=== PATIENT | male | born 1970 | race Two or more races ===

== ENCOUNTER 2020-01-04 15:00 | Outpatient (CLI) | payer OTHER, SELFPAY ==
[2020-01-04 16:22] LABS: Alanine Aminotransferase 51 U/L (4-50); Albumin Level 4.4 g/dL (3.5-5.1); Alkaline Phosphatase 57 U/L (38-126); Aspartate Amino Transferase 47 U/L (17-59); Bilirubin,Total 0.6 mg/dL (0.2-1.3); Blood Urea Nitrogen 18 mg/dL (9-20); Calcium 9.7 mg/dL (8.4-10.2); Carbon Dioxide 27 mmol/L (22-30); Chloride 106 mmol/L (98-107); Cholesterol 153 mg/dL (0-200); Estimated Glomerular Filt Rate > 60; Glucose 113 mg/dL (75-110); HDL Direct 31 mg/dL; Potassium 3.7 mmol/L (3.4-5.0); Sodium 141 mmol/L (137-145); Triglycerides 140 mg/dL (<150)
[2020-01-04 16:33] LABS: LDL Cholesterol Direct 99 mg/dL
== END 2020-01-04 15:01 | disposition home or self-care (01) ==
PROVIDERS: PCP Nurse Practitioner Family; Visit Provider Nurse Practitioner Family
DX: I10 Essential (primary) hypertension (principal)
CPT/HCPCS: 36415; 80053; 80061

== ENCOUNTER 2020-01-19 13:34 | Outpatient (CLI) | payer OTHER, SELFPAY | END 2020-01-19 13:35 | disposition home or self-care (01) | PROVIDERS: PCP Family Medicine; Visit Provider Nurse Practitioner Family | DX: R73.09 Other abnormal glucose (principal) | CPT/HCPCS: 36415; 83036 ==

== ENCOUNTER 2020-06-10 10:30 | Outpatient (CLI) | payer OTHER, SELFPAY ==
[2020-06-10 10:56] LABS: Basophils Absolute Auto 0.1 K/mm3 (0.0-0.1); Eosinophils Absolute Auto 0.3 K/mm3 (0-0.3); Eosinophils Percent Auto 2.8 % (0-4.4); Hematocrit 44.7 % (42.0-52.0); Hemoglobin 15.2 g/dL (14.0-18.0); Immature Granulocyte Absolute 0.02 K/mm3 (0.00-0.031); Immature Granulocyte Percent A 0.2 % (0-0.5); Lymphocytes Absolute Auto 3.91 K/mm3 (0.9-3.2); Lymphocytes Percent Auto 42.6 % (18.3-44.2); Mean Platelet Volume 9.8 fl (7.4-10.4); Monocytes Absolute Auto 0.6 K/mm3 (0.1-0.6); Neutrophils Absolute Auto 4.4 K/mm3 (1.3-6.7); Neutrophils Percent Auto 47.4 % (45.5-73.1); Platelet Count Result 286 k/mm3 (150-375); Red Blood Count 4.61 M/mm3 (4.6-6.20); Red Cell Distribution Width 11.8 % (11.5-14.5); White Blood Count 9.2 K/mm3 (4.5-10.0)
[2020-06-10 11:07] LABS: Alanine Aminotransferase 26 U/L (4-50); Albumin Level 4.4 g/dL (3.5-5.1); Alkaline Phosphatase 59 U/L (38-126); Anion Gap 11 mmol/L (8-16); Aspartate Amino Transferase 23 U/L (17-59); Bilirubin,Total 0.9 mg/dL (0.2-1.3); Blood Urea Nitrogen 15 mg/dL (9-20); Calcium 9.9 mg/dL (8.4-10.2); Carbon Dioxide 24 mmol/L (22-30); Chloride 107 mmol/L (98-107); Cholesterol 158 mg/dL (0-200); Estimated Glomerular Filt Rate > 60; Glucose 106 mg/dL (75-110); HDL Direct 41 mg/dL; Potassium 4.7 mmol/L (3.4-5.0); Sodium 142 mmol/L (137-145); Triglycerides 89 mg/dL (<150)
[2020-06-10 11:09] LABS: Hemoglobin A1C 4.5 % (<5.7)
[2020-06-10 11:18] LABS: LDL Cholesterol Direct 103 mg/dL
== END 2020-06-10 10:31 | disposition home or self-care (01) ==
PROVIDERS: PCP Family Medicine; Visit Provider Nurse Practitioner
DX: I10 Essential (primary) hypertension (principal); R73.9 Hyperglycemia, unspecified; E78.5 Hyperlipidemia, unspecified
CPT/HCPCS: 36415; 80053; 80061; 83036; 85025

== ENCOUNTER 2020-12-09 10:06 | Outpatient (CLI) | payer OTHER, SELFPAY ==
[2020-12-09 10:29] LABS: Basophils Absolute Auto 0.1 K/mm3 (0.0-0.1); Basophils Percent Auto 1.1 % (0.2-1.2); Eosinophils Absolute Auto 0.4 K/mm3 (0-0.3); Eosinophils Percent Auto 4.6 % (0-4.4); Hematocrit 44.6 % (42.0-52.0); Hemoglobin 15.2 g/dL (14.0-18.0); Immature Granulocyte Absolute 0.02 K/mm3 (0.00-0.031); Immature Granulocyte Percent A 0.2 % (0-0.5); Lymphocytes Percent Auto 42.2 % (18.3-44.2); Mean Corpuscular HGB Conc 34.1 g/dl (32-36); Mean Corpuscular Hemoglobin 33.1 pg (26-34); Mean Corpuscular Volume 97.2 fl (80-100); Mean Platelet Volume 9.6 fl (7.4-10.4); Monocytes Absolute Auto 0.6 K/mm3 (0.1-0.6); Monocytes Percent Auto 6.6 % (2.6-8.5); Neutrophils Absolute Auto 3.9 K/mm3 (1.3-6.7); Neutrophils Percent Auto 45.3 % (45.5-73.1); Platelet Count Result 262 k/mm3 (150-375); Red Blood Count 4.59 M/mm3 (4.6-6.20); Red Cell Distribution Width 11.7 % (11.5-14.5); White Blood Count 8.5 K/mm3 (4.5-10.0)
[2020-12-09 10:40] LABS: Alanine Aminotransferase 34 U/L (4-50); Albumin Level 4.4 g/dL (3.5-5.1); Alkaline Phosphatase 51 U/L (38-126); Anion Gap 9 mmol/L (8-16); Aspartate Amino Transferase 26 U/L (17-59); Bilirubin,Total 0.5 mg/dL (0.2-1.3); Blood Urea Nitrogen 14 mg/dL (9-20); Calcium 9.5 mg/dL (8.4-10.2); Carbon Dioxide 25 mmol/L (22-30); Chloride 108 mmol/L (98-107); Cholesterol 163 mg/dL (0-200); Estimated Glomerular Filt Rate > 60; Glucose 132 mg/dL (75-110); HDL Direct 41 mg/dL; Potassium 4.3 mmol/L (3.4-5.0); Sodium 142 mmol/L (137-145); Triglycerides 130 mg/dL (<150)
[2020-12-09 10:51] LABS: LDL Cholesterol Direct 94 mg/dL
[2020-12-09 11:33] LABS: Vitamin D 25 Hydroxy 25.5 ng/mL
[2020-12-10 13:55] LABS: Hemoglobin A1C 4.8 % (<5.7)
== END 2020-12-09 10:07 | disposition home or self-care (01) ==
LOC: ANHLAB 10:09
PROVIDERS: PCP Family Medicine; Visit Provider Nurse Practitioner
DX: I10 Essential (primary) hypertension (principal); E78.5 Hyperlipidemia, unspecified; E55.9 Vitamin D deficiency, unspecified
CPT/HCPCS: 36415; 80053; 80061; 82306; 83036; 85025

== ENCOUNTER 2021-06-09 10:04 | Outpatient (CLI) | payer OTHER, SELFPAY ==
[2021-06-09 10:29] LABS: Basophils Absolute Auto 0.1 K/mm3 (0.0-0.1); Basophils Percent Auto 0.8 % (0.2-1.2); Eosinophils Absolute Auto 0.3 K/mm3 (0-0.3); Hematocrit 47.4 % (42.0-52.0); Hemoglobin 15.3 g/dL (14.0-18.0); Immature Granulocyte Absolute 0.03 K/mm3 (0.00-0.031); Immature Granulocyte Percent A 0.3 % (0-0.5); Immature Platelet Fraction Pct 2.9 % (0.9-11.2); Lymphocytes Absolute Auto 3.19 K/mm3 (0.9-3.2); Lymphocytes Percent Auto 36.8 % (18.3-44.2); Mean Corpuscular HGB Conc 32.3 g/dl (32-36); Mean Corpuscular Volume 102.4 fl (80-100); Mean Platelet Volume 9.5 fl (7.4-10.4); Monocytes Absolute Auto 0.4 K/mm3 (0.1-0.6); Monocytes Percent Auto 5.1 % (2.6-8.5); Neutrophils Absolute Auto 4.7 K/mm3 (1.3-6.7); Red Blood Count 4.63 M/mm3 (4.6-6.20); White Blood Count 8.7 K/mm3 (4.5-10.0)
[2021-06-09 10:47] LABS: Alanine Aminotransferase 43 U/L (4-50); Albumin Level 4.7 g/dL (3.5-5.1); Alkaline Phosphatase 72 U/L (38-126); Anion Gap 9 mmol/L (8-16); Aspartate Amino Transferase 34 U/L (17-59); Bilirubin,Total 0.6 mg/dL (0.2-1.3); Blood Urea Nitrogen 15 mg/dL (9-20); Calcium 9.8 mg/dL (8.4-10.2); Carbon Dioxide 23 mmol/L (22-30); Chloride 108 mmol/L (98-107); Cholesterol 181 mg/dL (0-200); Estimated Glomerular Filt Rate > 60; Glucose 109 mg/dL (65-110); HDL Direct 36 mg/dL; Potassium 4.3 mmol/L (3.4-5.0); Sodium 140 mmol/L (137-145); Triglycerides 76 mg/dL (<150)
[2021-06-09 10:55] LABS: LDL Cholesterol Direct 124 mg/dL
[2021-06-09 11:14] LABS: Platelet Count Result 312 k/mm3 (150-375)
[2021-06-09 11:15] LABS: Prostate Specific Antigen 7.7 ng/mL (< OR = 4.0)
== END 2021-06-09 10:05 | disposition home or self-care (01) ==
PROVIDERS: PCP Family Medicine; Visit Provider Nurse Practitioner
DX: I10 Essential (primary) hypertension (principal); Z12.5 Encounter for screening for malignant neoplasm of prostate
CPT/HCPCS: 36415; 80053; 80061; 84153; 85025; 85055; G0103

== ENCOUNTER 2021-08-04 01:13 | Day surgery (SDC) | payer OTHER, SELFPAY ==
[2021-07-17 13:45] VITALS: BMI 31.4
[2021-08-04 10:55] VITALS: BP 138/87; PULSE 57; RESP 18; TEMP 36.2; O2SAT 100; BMI 30.4
--- NOTE | 2021-08-04 10:55 | P.CONGI_ITS ---
Assessment and Plan Assessment and plan (1) Encounter for screening colonoscopy: Code(s): Z12.11 - Encounter for screening for malignant neoplasm of colon Status: Acute Assessment and Plan: Patient presents for screening colonoscopy. He appears to be at average risk for colon polyps. Further recommendations will be given after endoscopy. GI Consult Note Consult date/time: 08/04/21 10:55 HPI: Jevon Gaston is a 51 year old male Presents for screening colonoscopy. Patient reports his current weight appetite and bowel movements are normal. He denies abdominal pain. He has had no bleeding. Family history is significant his grandmother had colon cancer. There has been no reported history of polyps nor cancer in first-degree relatives. Patient presents today for neoplasia screening. Review of Systems Review of Systems: All systems reviewed & are unremarkable except as noted in HPI and below PMFSH Past Medical History Medical History Erectile dysfunction Essential (primary) hypertension Gout ARVIND on CPAP Osteoarthritis of left wrist Seasonal allergies Surgical History Surgical History No history of previous surgery Family History Family History Mother Hypertension, Onset Age: 70 Social History Social History Smoking status: Current some day smoker Alcohol intake: never Living arrangements: with family Spiritual care concerns: No Meds Home Medications and Allergies Home Medications Medication Instructions Recorded Confirmed Type fluticasone propionate 50 See Rx Instructions .ROUTE 12/18/20 08/04/21 Rx mcg/actuation nasal .COMPLEX #16 milliliter spray,suspension sildenafil 50 mg tablet 50 mg PO DAILY PRN #30 tablet 01/13/21 08/04/21 Rx atenolol 50 mg tablet 50 mg PO DAILY #90 tablet 05/16/21 08/04/21 Rx amlodipine 10 mg tablet 10 mg PO DAILY #90 tablet 06/25/21 08/04/21 Rx meloxicam 7.5 mg tablet 7.5 mg PO DAILY #90 tablet 06/25/21 08/04/21 Rx allopurinol 100 mg PO DAILY 07/17/21 08/04/21 History multivit with min-folic acid 1 tablet PO DAILY 07/17/21 08/04/21 History [Adult One Daily Multivitamin] Allergies Allergy/AdvReac Type Severity Reaction Status Date / Time No Known Allergies Allergy Verified 08/04/21 10:54 Exam Narrative: Physical exam reveals patient be alert. Vital signs are stable. HEENT exam is unremarkable. Patient is anicteric. Lungs are clear to aus cultation and percussion. Heart is without murmur or extra sounds. Abdominal exam bowel sounds are present soft nontender with no organomegaly. Digital external rectal exam is normal.
[2021-08-04] MEDS: LACTATED RINGERS 1,000 ML 150 ML IV CONT (11:08)
--- NOTE | 2021-08-04 11:28 | WPDANESEPPF ---
Anes - Initial Pre Proc Eval Procedure: Operation Date: 08/04/21 11:30 Proposed Procedures p Screening Colonoscopy - Brice Iglesias MD Date/Time: 08/04/21 11:28 Surgeon: Brice Iglesias MD Pre Op Diagnosis: neoplasm screening Patient Data Age: 51 Gender: M Height: 1.83 m Weight: 101.9 kg Last Vital Signs Temp 97.2 F L 08/04/21 10:55 Pulse 57 L 08/04/21 10:55 Resp 18 08/04/21 10:55 BP 138/87 08/04/21 10:55 Pulse Ox 100 08/04/21 10:55 Allergies Allergy/AdvReac Type Severity Reaction Status Date / Time No Known Allergies Allergy Verified 08/04/21 10:54 Home Medications Medication Instructions Recorded Confirmed Type fluticasone propionate 50 See Rx Instructions .ROUTE 12/18/20 08/04/21 Rx mcg/actuation nasal .COMPLEX #16 milliliter spray,suspension sildenafil 50 mg tablet 50 mg PO DAILY PRN #30 tablet 01/13/21 08/04/21 Rx atenolol 50 mg tablet 50 mg PO DAILY #90 tablet 05/16/21 08/04/21 Rx amlodipine 10 mg tablet 10 mg PO DAILY #90 tablet 06/25/21 08/04/21 Rx meloxicam 7.5 mg tablet 7.5 mg PO DAILY #90 tablet 06/25/21 08/04/21 Rx allopurinol 100 mg PO DAILY 07/17/21 08/04/21 History multivit with min-folic acid 1 tablet PO DAILY 07/17/21 08/04/21 History [Adult One Daily Multivitamin] Patient hx anesthesia problems: none Family hx anesthesia problems: none Results Review: All pre-operative results and documents have been reviewed as part of the pre-operative evaluation. FOR[facility]LY [facility] Past Medical History Medical History Erectile dysfunction Essential (primary) hypertension Gout ARVIND on CPAP Osteoarthritis of left wrist Seasonal allergies Surgical History Surgical History No history of previous surgery Family History Family History Mother Hypertension, Onset Age: 70 Social History Social History Smoking status: Current some day smoker Alcohol intake: never Living arrangements: with family Spiritual care concerns: No Anes - Eval Final PreProcedure Day of Procedure 08/04/21 11:28 Patient weight: overweight Heart: regular rate and rhythm Lungs: clear to auscultation Airway: Mallampati scale class II Neurological: alert and oriented Last oral intake: >/= 8 hours ASA classification: II Emergent: no Anesthetic plan: proceed Anesthesia type and monitoring: general GIVS and standard monitoring Results Review: All pre-operative results and documents have been reviewed as part of the pre-operative evaluation. Informed Consent: The patient's anesthetic plan and its attendant risks and benefits were discussed with the patient/family/POA. Questions were solicited and answers provided to the satisfaction of the patient/family/POA.
[2021-08-04 12:41] VITALS: BP 83/51; PULSE 67; RESP 17; O2SAT 99
[2021-08-04 12:51] VITALS: BP 104/74; PULSE 63; RESP 17; O2SAT 100
[2021-08-04 13:01] VITALS: BP 119/80; PULSE 52; RESP 17; O2SAT 100
== END 2021-08-04 13:15 | disposition home or self-care (01) ==
PROVIDERS: PCP Family Medicine; Visit Provider Internal Medicine Gastroenterology
PROC: 0DJD8ZZ Inspection of Lower Intestinal Tract, Via Natural or Artificial Opening Endoscopic (ICD-10-PCS; CPT 45378; principal; 2021-08-04 11:30)
DX: Z12.11 Encounter for screening for malignant neoplasm of colon (principal); K63.5 Polyp of colon; I10 Essential (primary) hypertension; G47.33 Obstructive sleep apnea (adult) (pediatric); M10.9 Gout, unspecified
CPT/HCPCS: 45385; 88305; J2704; J7120

== ENCOUNTER 2022-06-30 15:50 | Outpatient (CLI) | payer OTHER, SELFPAY ==
[2022-06-30 19:37] LABS: Basophils Absolute Auto 0.1 K/mm3 (0.0-0.1); Basophils Percent Auto 0.9 % (0.2-1.2); Eosinophils Absolute Auto 0.4 K/mm3 (0-0.3); Eosinophils Percent Auto 3.9 % (0-4.4); Hematocrit 43.9 % (42.0-52.0); Hemoglobin 14.5 g/dL (14.0-18.0); Immature Granulocyte Absolute 0.02 K/mm3 (0.00-0.031); Immature Granulocyte Percent A 0.2 % (0-0.5); Lymphocytes Absolute Auto 4.82 K/mm3 (0.9-3.2); Lymphocytes Percent Auto 48.2 % (18.3-44.2); Mean Corpuscular Hemoglobin 32.8 pg (26-34); Mean Corpuscular Volume 99.3 fl (80-100); Monocytes Absolute Auto 0.7 K/mm3 (0.1-0.6); Monocytes Percent Auto 7.4 % (2.6-8.5); Neutrophils Absolute Auto 3.9 K/mm3 (1.3-6.7); Neutrophils Percent Auto 39.4 % (45.5-73.1); Platelet Count Result 276 k/mm3 (150-375); Red Blood Count 4.42 M/mm3 (4.6-6.20); Red Cell Distribution Width 11.9 % (11.5-14.5)
[2022-06-30 20:10] LABS: Vitamin D 25 Hydroxy 42.2 ng/mL
[2022-06-30 20:27] LABS: Alanine Aminotransferase 43 U/L (6-50); Albumin Level 4.7 g/dL (3.5-5.1); Alkaline Phosphatase 62 U/L (38-126); Anion Gap 14 mmol/L (8-16); Aspartate Amino Transferase 36 U/L (17-59); Bilirubin,Total 0.6 mg/dL (0.2-1.3); Blood Urea Nitrogen 18 mg/dL (9-20); Calcium 9.2 mg/dL (8.4-10.2); Carbon Dioxide 22 mmol/L (22-30); Chloride 105 mmol/L (98-107); Cholesterol 179 mg/dL (0-200); Estimated Glomerular Filt Rate > 60; Glucose 82 mg/dL (65-110); HDL Direct 36 mg/dL; Potassium 3.7 mmol/L (3.4-5.0); Sodium 141 mmol/L (137-145); Triglycerides 95 mg/dL (<150)
[2022-06-30 20:38] LABS: LDL Cholesterol Direct 111 mg/dL
[2022-06-30 20:57] LABS: Thyroid Stimulating Hormone 0.973 uIU/mL (0.465-4.680)
== END 2022-06-30 15:51 | disposition home or self-care (01) ==
LOC: ANHGOSHLAB 15:51
PROVIDERS: PCP Family Medicine; Visit Provider Nurse Practitioner Family
DX: Z00.00 Encounter for general adult medical examination without abnormal findings (principal); I10 Essential (primary) hypertension; E55.9 Vitamin D deficiency, unspecified
CPT/HCPCS: 36415; 80053; 80061; 82306; 84443; 85025

== ENCOUNTER → 2022-12-30 14:45 | Outpatient (CLI) | payer BC, SELFPAY ==
--- NOTE | ~2022-12-30 | XR_ITS ---
EXAM: XR lumbar spine min 4V DATE: 12/30/2022 14:57 HISTORY: no injury lbp . COMPARISON: None available. FINDINGS: 5 nonrib-bearing lumbar-type vertebral bodies. Pedicles intact. Normal vertebral body alig nment. Vertebral body heights preserved. Mild anterior wedge deformity at the thoracolumbar junction, presumably physiologic. Mild disc space narrowing at L4-5. Moderate disc space narrowing with vacuum phenomenon at L5-S1. Mild facet sclerosis at L5-S1. No pars defect. IMPRESSION: Severe degenerative disc disease at L5-S1. Mild L5-S1 facet arthropathy. Reviewed, dictated and finalized at location K. IMPRESSION: Severe degenerative disc disease at L5-S1. Mild L5-S1 facet arthrop athy.
== END ==
PROVIDERS: PCP Family Medicine; Visit Provider Nurse Practitioner
DX: M51.37 Other intervertebral disc degeneration, lumbosacral region (principal)
CPT/HCPCS: 72110

== ENCOUNTER 2023-02-11 15:46 | Outpatient (CLI) | payer BC, SELFPAY ==
[2023-02-11 17:05] LABS: Alanine Aminotransferase 66 U/L (6-50); Albumin Level 4.5 g/dL (3.5-5.1); Alkaline Phosphatase 51 U/L (38-126); Anion Gap 7 mmol/L (8-16); Aspartate Amino Transferase 47 U/L (17-59); Bilirubin,Total 0.7 mg/dL (0.2-1.3); Blood Urea Nitrogen 13 mg/dL (9-20); Calcium 9.1 mg/dL (8.4-10.2); Carbon Dioxide 27 mmol/L (22-30); Chloride 105 mmol/L (98-107); Cholesterol 176 mg/dL (0-200); Estimated Glomerular Filt Rate > 60; Glucose 78 mg/dL (65-110); HDL Direct 41 mg/dL; Potassium 3.8 mmol/L (3.4-5.0); Sodium 139 mmol/L (137-145); Triglycerides 100 mg/dL (<150)
[2023-02-11 17:16] LABS: LDL Cholesterol Direct 113 mg/dL
== END 2023-02-11 15:47 | disposition home or self-care (01) ==
PROVIDERS: PCP Family Medicine; Visit Provider Nurse Practitioner Family
DX: E78.5 Hyperlipidemia, unspecified (principal); I10 Essential (primary) hypertension; R97.20 Elevated prostate specific antigen [PSA]
CPT/HCPCS: 36415; 80053; 80061

== ENCOUNTER 2023-02-24 17:24 | Emergency (ER) | payer BC, SELFPAY ==
--- NOTE | 2023-02-24 17:30 | ED.URI ---
HPI - URI/Sore Throat General Chief Complaint: Upper Respiratory Infection Stated Complaint: Sore Throat Time Seen by Provider: 02/24/23 17:30 Source: patient and RN notes reviewed History of Present Illness HPI Narrative: Patient is a 52-year-old male who presents to urgent care with complaints of a sore throat for 5 weeks. Patient states he initially had a cough, some drainage and a fever which have all improved. Patient is not taking anything recently for his symptoms. States that he is a Lamb any feels like he continues to irritate the throat. No other acute complaints. No acute distress noted. Patient aware of the plan of care. Some parts of this dictation were generated by voice recognition software and may contain typographical and/or grammatical inaccuracies. Related Data Home Medications Medication Instructions Recorded Confirmed multivitamin with minerals-folic 1 tablet PO DAILY 07/17/21 01/21/23 acid 0.4 mg tablet fluticasone propionate 50 See Rx Instructions .Route 01/02/22 01/21/23 mcg/actuation nasal .COMPLEX PRN spray,suspension Allergies Allergy/AdvReac Type Severity Reaction Status Date / Time No Known Allergies Allergy Verified 01/21/23 15:32 Review of Systems Review of Systems: CONSTITUTIONAL: Denies fever, chills, or sweats. EYES: Denies visual changes, redness, or discharge. ENT: Denies rhinorrhea, congestion, otalgia. Reports of sore throat CARDIOVASCULAR: Denies chest pain, palpitations, or edema. RESPIRATORY: Denies cough or dyspnea. GASTROINTESTINAL: Denies abdominal pain, nausea, vomiting, or diarrhea. GENITOURINARY: Denies dysuria or hematuria. SKIN: Denies rash or itching. MUSCULOSKELETAL: Denies back pain, joint pain, or myalgia. NEUROLOGIC: Denies headache, numbness, or weakness. All other systems reviewed are negative, except as documented in HPI. FOR[facility]LY [facility] Past Medical History Medical History DDD (degenerative disc disease), lumbar Erectile dysfunction Essential (primary) hypertension Gout ARVIND on CPAP Osteoarthritis of left wrist Seasonal allergies Surgical History Surgical History No history of previous surgery Family History Family History Mother Hypertension, Onset Age: 70 Social History Social History Smoking status: Current some day smoker Tobacco type: cigarettes Alcohol intake: never Substance use: never Substance use type: does not use Lack of Transportation: No Lack of Food: Never True Current Housing: I Have Housing Concerned About Future Housing: No Difficulty Paying Gas/Electric Bills: No Difficulty Paying for Meds: No Currently Unemployed: No Education: Associate Degree Difficulty w/ Childcare or Family Care: No Living arrangements: alone Occupation/Education: occupation Gender identity (if verbalized by the patient): Male Spiritual care concerns: No Comments At the time of my signature, I reviewed and agree with the nursing past medical, surgical, social, and family history. There is no relevant family history pertinent to the patient complaint. Exam Narrative: GENERAL: This is a well-nourished, well-developed patient, in no apparent distress. HEAD: normocephalic, atraumatic. EYES: PERRL. Sclera clear/white. Vision is grossly intact. EARS: External ears normal, auditory canals clear and without drainage, TMs normal without perforation. Hearing grossly intact. NOSE: External nose normal with no obvious nasal discharge, nares without redness, no rhinorrhea. THROAT: Mucous membranes moist; mild erythema in the posterior oropharynx NECK: Neck supple, non-tender without lymphadenopathy, masses or thyromegaly. CARDIOVASCULAR: Regular rate and rhythm without murmurs, gallops, or rubs. RESPIRA
[2023-02-24 17:34] VITALS: BP 161/85; PULSE 73; RESP 20; TEMP 37.1; O2SAT 100
== END 2023-02-24 18:08 | disposition home or self-care (01) ==
PROVIDERS: Emergency Provider Nurse Practitioner Family; PCP Family Medicine
DX: J02.9 Acute pharyngitis, unspecified (principal); F17.219 Nicotine dependence, cigarettes, with unspecified nicotine-induced disorders; M51.36 Other intervertebral disc degeneration, lumbar region; I10 Essential (primary) hypertension; M10.9 Gout, unspecified; G47.33 Obstructive sleep apnea (adult) (pediatric); M19.032 Primary osteoarthritis, left wrist
CPT/HCPCS: 87081; 87880; 99213; G0463

== ENCOUNTER 2023-03-15 14:26 | Outpatient (CLI) | payer BC, SELFPAY ==
[2023-03-15 15:39] LABS: Kit Draw Collected
== END 2023-03-15 14:27 | disposition home or self-care (01) ==
LOC: ANHGOSHLAB 14:27
PROVIDERS: PCP Family Medicine; Visit Provider Otolaryngology
DX: E03.9 Hypothyroidism, unspecified (principal)
CPT/HCPCS: 36415

== ENCOUNTER 2023-08-12 08:58 | Outpatient (CLI) | payer BC, SELFPAY ==
[2023-08-12 12:02] LABS: Basophils Absolute Auto 0.1 K/mm3 (0.0-0.1); Basophils Percent Auto 1.2 % (0.2-1.2); Eosinophils Percent Auto 10.6 % (0-4.4); Hematocrit 44.8 % (42.0-52.0); Hemoglobin 14.8 g/dL (14.0-18.0); Immature Granulocyte Absolute 0.02 K/mm3 (0.00-0.031); Immature Granulocyte Percent A 0.2 % (0-0.5); Lymphocytes Absolute Auto 3.48 K/mm3 (0.9-3.2); Lymphocytes Percent Auto 38.4 % (18.3-44.2); Mean Corpuscular Hemoglobin 32.2 pg (26-34); Mean Corpuscular Volume 97.6 fl (80-100); Mean Platelet Volume 10.7 fl (7.4-10.4); Monocytes Absolute Auto 0.7 K/mm3 (0.1-0.6); Monocytes Percent Auto 7.9 % (2.6-8.5); Neutrophils Absolute Auto 3.8 K/mm3 (1.3-6.7); Neutrophils Percent Auto 41.7 % (45.5-73.1); Platelet Count Result 278 k/mm3 (150-375); Red Blood Count 4.59 M/mm3 (4.6-6.20); White Blood Count 9.1 K/mm3 (4.5-10.0)
[2023-08-12 12:19] LABS: Alanine Aminotransferase 92 U/L (6-50); Albumin Level 4.4 g/dL (3.5-5.1); Alkaline Phosphatase 64 U/L (38-126); Anion Gap 8 mmol/L (8-16); Aspartate Amino Transferase 116 U/L (17-59); Bilirubin,Total 0.9 mg/dL (0.2-1.3); Blood Urea Nitrogen 16 mg/dL (9-20); Calcium 9.4 mg/dL (8.4-10.2); Carbon Dioxide 26 mmol/L (22-30); Chloride 105 mmol/L (98-107); Estimated Glomerular Filt Rate > 60; Glucose 195 mg/dL (65-110); Sodium 139 mmol/L (137-145)
[2023-08-12 12:36] LABS: Hemoglobin A1C 6.1 % (<5.7)
[2023-08-12 12:43] LABS: Thyroid Stimulating Hormone 0.892 uIU/mL (0.465-4.680)
== END 2023-08-12 08:59 | disposition home or self-care (01) ==
LOC: ANHGOSHLAB 08:59
PROVIDERS: PCP Family Medicine; Visit Provider Nurse Practitioner Family
DX: Z00.00 Encounter for general adult medical examination without abnormal findings (principal); R73.03 Prediabetes; E03.9 Hypothyroidism, unspecified
CPT/HCPCS: 36415; 80053; 83036; 84443; 85025

== ENCOUNTER → 2023-08-12 09:10 | Outpatient (CLI) | payer BC, SELFPAY ==
--- NOTE | ~2023-08-12 | XR_ITS ---
EXAMINATION: XR chest 2V 08/12/2023 09:20 INDICATION: Hypertension PROCEDURE: 2 view chest COMPARISON: 01/24/2010 FINDINGS: The lungs are clear. The cardiomediastinal silhouette is within normal limits. There are no pleural effusions. There is no pneumothorax suspected. IMPRESSION: 1: NO ACUTE CARDIOPULMONARY DISEASE. Reviewed, dictated and finalized at location L.
== END ==
PROVIDERS: PCP Family Medicine; Visit Provider Nurse Practitioner Family
DX: J31.2 Chronic pharyngitis (principal)
CPT/HCPCS: 71046

== ENCOUNTER 2023-11-12 11:16 | Outpatient (CLI) | payer OTHER, SELFPAY ==
[2023-11-12 12:44] LABS: Basophils Absolute Auto 0.1 K/mm3 (0.0-0.1); Basophils Percent Auto 1.1 % (0.2-1.2); Eosinophils Absolute Auto 0.5 K/mm3 (0-0.3); Eosinophils Percent Auto 6.2 % (0-4.4); Hematocrit 44.6 % (42.0-52.0); Hemoglobin 14.1 g/dL (14.0-18.0); Immature Granulocyte Absolute 0.01 K/mm3 (0.00-0.031); Immature Granulocyte Percent A 0.1 % (0-0.5); Lymphocytes Absolute Auto 3.34 K/mm3 (0.9-3.2); Lymphocytes Percent Auto 46.2 % (18.3-44.2); Mean Corpuscular HGB Conc 31.6 g/dl (32-36); Mean Corpuscular Hemoglobin 32.9 pg (26-34); Mean Platelet Volume 9.9 fl (7.4-10.4); Monocytes Absolute Auto 0.6 K/mm3 (0.1-0.6); Neutrophils Absolute Auto 2.8 K/mm3 (1.3-6.7); Neutrophils Percent Auto 38.4 % (45.5-73.1); Platelet Count Result 269 k/mm3 (150-375); Red Blood Count 4.29 M/mm3 (4.6-6.20); Red Cell Distribution Width 12.3 % (11.5-14.5); White Blood Count 7.2 K/mm3 (4.5-10.0)
[2023-11-12 13:03] LABS: Alanine Aminotransferase 82 U/L (6-50); Albumin Level 4.3 g/dL (3.5-5.1); Alkaline Phosphatase 49 U/L (38-126); Anion Gap 6 mmol/L (8-16); Aspartate Amino Transferase 91 U/L (17-59); Bilirubin,Total 0.6 mg/dL (0.2-1.3); Blood Urea Nitrogen 21 mg/dL (9-20); Calcium 9.9 mg/dL (8.4-10.2); Carbon Dioxide 28 mmol/L (22-30); Chloride 107 mmol/L (98-107); Cholesterol 183 mg/dL (0-200); Estimated Glomerular Filt Rate > 60; Glucose 110 mg/dL (65-110); HDL Direct 35 mg/dL; Sodium 141 mmol/L (137-145); Triglycerides 239 mg/dL (<150)
[2023-11-12 13:14] LABS: LDL Cholesterol Direct 125 mg/dL
[2023-11-12 14:34] LABS: Hemoglobin A1C 5.9 % (<5.7)
== END 2023-11-12 11:17 | disposition home or self-care (01) ==
LOC: ANHGOSHLAB 11:17
PROVIDERS: PCP Family Medicine; Visit Provider Nurse Practitioner Family
DX: Z00.00 Encounter for general adult medical examination without abnormal findings (principal); E11.9 Type 2 diabetes mellitus without complications; E78.5 Hyperlipidemia, unspecified
CPT/HCPCS: 36415; 80053; 80061; 83036; 85025

== ENCOUNTER 2024-03-16 14:06 | Outpatient (CLI) | payer OTHER, SELFPAY ==
[2024-03-16 19:47] LABS: Alanine Aminotransferase 30 U/L (6-50); Albumin Level 4.7 g/dL (3.5-5.1); Alkaline Phosphatase 56 U/L (38-126); Anion Gap 13 mmol/L (4-12); Aspartate Amino Transferase 46 U/L (17-59); Bilirubin,Total 0.7 mg/dL (0.2-1.3); Blood Urea Nitrogen 24 mg/dL (9-20); Calcium 9.9 mg/dL (8.4-10.2); Carbon Dioxide 25 mmol/L (22-30); Chloride 102 mmol/L (98-107); Estimated Glomerular Filt Rate > 60; Glucose 93 mg/dL (65-110); Potassium 3.8 mmol/L (3.4-5.0); Sodium 140 mmol/L (137-145)
[2024-03-16 20:15] LABS: Hematocrit 44.4 % (42.0-52.0); Hemoglobin 14.6 g/dL (14.0-18.0); Mean Corpuscular HGB Conc 32.9 g/dl (32-36); Mean Corpuscular Hemoglobin 32.2 pg (26-34); Mean Platelet Volume 9.9 fl (7.4-10.4); Platelet Count Result 285 k/mm3 (150-375); Red Blood Count 4.53 M/mm3 (4.6-6.20); White Blood Count 10.7 K/mm3 (4.5-10.0)
[2024-03-16 20:18] LABS: Thyroid Stimulating Hormone Reflex 0.693 uIU/mL (0.465-4.68)
[2024-03-16 21:56] LABS: Hemoglobin A1C 4.5 % (<5.7)
== END 2024-03-16 14:07 | disposition home or self-care (01) ==
LOC: ANHGOSHLAB 14:07
PROVIDERS: PCP Family Medicine; Visit Provider Nurse Practitioner Family
DX: E03.9 Hypothyroidism, unspecified (principal); E11.9 Type 2 diabetes mellitus without complications; R74.8 Abnormal levels of other serum enzymes
CPT/HCPCS: 36415; 80053; 83036; 84443; 85027

== ENCOUNTER 2024-05-30 09:57 | Outpatient (CLI) | payer OTHER, SELFPAY ==
[2024-05-30 13:49] LABS: Vitamin D 25 Hydroxy 41.4 ng/mL
[2024-05-30 14:20] LABS: Creatinine Urine 222.1 mg/dL
[2024-05-30 14:23] LABS: MALB Creatinine Ratio 13.6 mg/g (0-30); Microalbumin Urine Random 30.1 mg/L (0-16.7)
[2024-05-30 14:42] LABS: LDL Cholesterol Direct 112 mg/dL
[2024-05-30 14:49] LABS: Anion Gap 11 mmol/L (4-12); Blood Urea Nitrogen 16 mg/dL (9-20); Calcium 9.6 mg/dL (8.4-10.2); Carbon Dioxide 26 mmol/L (22-30); Chloride 105 mmol/L (98-107); Cholesterol 176 mg/dL (0-200); Estimated Glomerular Filt Rate > 60; Glucose 77 mg/dL (65-110); HDL Direct 36 mg/dL; Potassium 4.1 mmol/L (3.4-5.0); Sodium 142 mmol/L (137-145); Triglycerides 117 mg/dL (<150)
[2024-05-30 14:58] LABS: Prostate Specific Antigen 1.6 ng/mL (< OR = 4.0)
[2024-06-03 20:37] LABS: Glutamic acid decarboxylase AA <5 IU/mL (<5)
[2024-06-07 03:09] LABS: Islet Cell Antibody Screen NEGATIVE (NEGATIVE)
[2024-06-09 18:23] LABS: Zinc Transporter 8 Antibody <10 U/mL (<15)
== END 2024-05-30 09:58 | disposition home or self-care (01) ==
LOC: ANHGOSHLAB 09:59
PROVIDERS: Urology; PCP Family Medicine; Visit Provider Internal Medicine Endocrinology, Diabetes & Metabolism
DX: E11.9 Type 2 diabetes mellitus without complications (principal); E78.5 Hyperlipidemia, unspecified; R97.20 Elevated prostate specific antigen [PSA]
CPT/HCPCS: 36415; 80048; 80061; 82043; 82306; 84153; 86341

== ENCOUNTER 2024-09-14 09:18 | Outpatient (CLI) | payer OTHER, SELFPAY ==
[2024-09-14 20:33] LABS: Alanine Aminotransferase 40 U/L (6-50); Albumin Level 4.2 g/dL (3.5-5.1); Alkaline Phosphatase 49 U/L (38-126); Anion Gap 6 mmol/L (4-12); Aspartate Amino Transferase 41 U/L (17-59); Bilirubin,Total 0.9 mg/dL (0.2-1.3); Blood Urea Nitrogen 13 mg/dL (9-20); Calcium 9.1 mg/dL (8.4-10.2); Carbon Dioxide 25 mmol/L (22-30); Chloride 108 mmol/L (98-107); Cholesterol 115 mg/dL (0-200); Estimated Glomerular Filt Rate > 60; Glucose 98 mg/dL (65-110); HDL Direct 39 mg/dL; Potassium 4.1 mmol/L (3.4-5.0); Sodium 139 mmol/L (137-145); Triglycerides 48 mg/dL (<150)
[2024-09-14 20:45] LABS: LDL Cholesterol Direct 56 mg/dL
[2024-09-14 20:53] LABS: Basophils Absolute Auto 0.1 K/mm3 (0.0-0.1); Basophils Percent Auto 1.3 % (0.2-1.2); Eosinophils Absolute Auto 0.9 K/mm3 (0-0.3); Eosinophils Percent Auto 11.5 % (0-4.4); Hematocrit 42.4 % (42.0-52.0); Hemoglobin 14.3 g/dL (14.0-18.0); Immature Granulocyte Absolute 0.01 K/mm3 (0.00-0.031); Immature Granulocyte Percent A 0.1 % (0-0.5); Lymphocytes Absolute Auto 2.81 K/mm3 (0.9-3.2); Lymphocytes Percent Auto 36.9 % (18.3-44.2); Mean Corpuscular HGB Conc 33.7 g/dl (32-36); Mean Corpuscular Volume 97.9 fl (80-100); Mean Platelet Volume 9.8 fl (7.4-10.4); Monocytes Absolute Auto 0.4 K/mm3 (0.1-0.6); Monocytes Percent Auto 5.6 % (2.6-8.5); Neutrophils Absolute Auto 3.4 K/mm3 (1.3-6.7); Neutrophils Percent Auto 44.6 % (45.5-73.1); Platelet Count Result 261 k/mm3 (150-375); Red Blood Count 4.33 M/mm3 (4.6-6.20); Red Cell Distribution Width 12.2 % (11.5-14.5); White Blood Count 7.6 K/mm3 (4.5-10.0)
[2024-09-14 22:32] LABS: Hemoglobin A1C 4.5 % (<5.7)
== END 2024-09-14 09:19 | disposition home or self-care (01) ==
LOC: ANHGOSHLAB 09:20
PROVIDERS: PCP Family Medicine; Visit Provider Nurse Practitioner Family
DX: E78.5 Hyperlipidemia, unspecified (principal); I10 Essential (primary) hypertension; E11.9 Type 2 diabetes mellitus without complications
CPT/HCPCS: 36415; 80053; 80061; 83036; 85025

== ENCOUNTER 2025-05-10 15:44 | Outpatient (CLI) | payer OTHER, SELFPAY ==
--- NOTE | ~2025-05-10 | XR_ITS ---
EXAMINATION: XR wrist LT min 3V DATE: 05/10/2025 15:56 INDICATION: Pain in left wrist for 2 months. No injury TECHNIQUE:4 images of the left wrist were obtained. COMPARISON: none FINDINGS: Mild joint space narrowing throughout the carpal bones including the first carpometacarpal joint. There are a few subcentimeter lucencies scattered throughout the carpal bones and in the base of the second metacarpal. Soft tissue swelling about the left wrist. No fracture. IMPRESSION: 1. Mild joint space narrowing throughout the carpal bones including the first carpometacarpal joint. There are a few subcentimeter lucencies scattered throughout the carpal bones and in the base of the second metacarpal. 2. Soft tissue swelling about the left wrist. 3. No fracture. Reviewed, dictated and finalized at location Q. IMPRESSION: 1. Mild joint space narrowing throughout the carpal bones including the first c arpometacarpal joint. There are a few subcentimeter lucencies scattered through out the carpal bones and in the base of the second metacarpal. 2. Soft tissue swelling about the left wrist. 3. No fracture.
== END 2025-05-10 15:45 | disposition home or self-care (01) ==
PROVIDERS: PCP Nurse Practitioner Family; Visit Provider Nurse Practitioner Family
DX: M25.532 Pain in left wrist (principal); M79.89 Other specified soft tissue disorders
CPT/HCPCS: 73110

== ENCOUNTER 2025-05-15 10:19 | Outpatient (CLI) | payer OTHER, SELFPAY ==
--- OUTSIDE RECORDS SUMMARY | 2025-05-15 11:50 | XMS_ITS | Clinical Summary ---
Author Organization [facility] Address [address] [place] [address] Care Team Providers Care Structurer Name Role Phone Jhony Wilkins MD Primary Care Provider Allergies No known active allergies Medications allopurinol (ZYLOPRIM) 100 mg tablet Take 1 tablet (100 mg total) by mouth daily. 30 tablet 6 8 Active amLODIPine (NORVASC) 10 mg tablet Take 10 mg by mouth daily 1 9 Active atenolol (TENORMIN) 50 mg tablet Take 50 mg by mouth daily 1 9 Active meloxicam (MOBIC) 7.5 mg tablet Take 1 tablet (7.5 mg total) by mouth daily Active multivit with min-folic acid 0.4 mg tablet Take 1 tablet by mouth daily Active alcohol swabs (Alcohol Wipes) pads, medicated Use as directed. 100 each 4 Active blood glucose diagnostic (glucose blood) strip Use as directed up to four times a day. 100 each 1 4 Active blood-glucose meter kit Use as directed. 1 kit 4 Active lancets misc Use as directed up to 4 times a day. 100 each 1 4 Active azelastine (ASTELIN) 137 mcg (0.1 %) nasal sprayIndicatio ns:Chronic cough,Seasonal allergic rhinitis due to pollen Administer 2 sprays into each nostril 2 (two) times a day Use in each nostril as directed 30 mL 11 5 06/08/20 25 Active cloNIDine (CATAPRES) 0.2 mg tablet Take 1 tablet (0.2 mg total) by mouth 2 (two) times a day. 60 tablet 6 8 05/09/20 25 Discontinu ed(Patient Reported) omeprazole (PriLOSEC) 40 mg capsule Take 1 capsule (40 mg total) by mouth daily 05/09/20 25 Discontinu ed(Patient Reported) ferrous sulfate ER (SLOW IRON) 142 mg (45 mg of elemental iron) tablet Take 1 tablet (142 mg total) by mouth daily with breakfast 05/09/20 25 Discontinu ed(Patient Reported) gabapentin (NEURONTIN) 300 mg capsuleIndicat ions:Neuropath ic Pain Take 1 capsule (300 mg total) by mouth 3 (three) times a day 90 capsule 4 05/09/20 25 Discontinu ed(Patient Reported) insulin glargine (LANTUS, BASAGLAR, SEMGLEE) 100 unit/mL (3 mL) pen for injectionIndic ations:Diabete s Mellitus Inject 55 Units under the skin nightly 16.5 mL 4 05/09/20 25 Discontinu ed(Patient Reported) insulin lispro (HumaLOG, ADMELOG) 100 unit/mL pen for injectionIndic ations:type 2 diabetes mellitus Inject 19 Units under the skin 3 (three) times a day with meals 15 mL 4 05/09/20 25 Discontinu ed(Patient Reported) cetirizine 10 mg capsule Take 10 mg by mouth 2 (two) times a day 60 capsule 11 4 05/09/20 25 Discontinu ed(Patient Reported) fluticasone propionate (FLONASE) 50 mcg/actuation nasal spray Administer 2 sprays into each nostril daily 16 g 11 4 05/09/20 25 Discontinu ed(Alterna te therapy) Active Problems Problem Noted Date Diagnosed Date Chronic cough 05/09/2025 Assessment & Plan (05/09/2025 8:49 AM CDT): Chest Xray today Referral to Pulmonary for Pulmonary function testing Nasal saline spray (Simply saline, Little Remedies, Barrow, Hammett) 2 second sprays or 2 squeezes into each nostril while looking down over the sink, do not need to sniff in. Astelin (azelastine) 2 sprays into each nostril while looking down over the sink, do not sniff in or blow nose after use for at least 30 minutes twice daily Seasonal allergic rhinitis due to pollen 025 Assessment & Plan (05/09/2025 8:49 AM CDT): Chest Xray today Referral to Pulmonary for Pulmonary function testing Nasal saline spray (Simply saline, Little Remedies, Barrow, Hammett) 2 second sprays or 2 squeezes into each nostril while looking down over the sink, do not need to sniff in. Astelin (azelastine) 2 sprays into each nostril while looking down over the sink, do not sniff in or blow nose after use for at least 30 minutes twice daily Meralgia paresthetica of right side 10/12/2023 Pseudohyponatremia 10/12/2023 Class 2 severe obesity due t o excess calories with serious comorbidity and body mass index (BMI) of 36.0 to 36.9 in adult 10/12/2023 Diabetic ketoacidosis withou t coma associated with type 2 diabetes mellitus 10/10/2023 Acute gout of left wrist 01/16/2018 Assessment & Plan (01/16/2018 5:05 PM CDT): Patient takes hydrochlorothiazide for his blood pressure and this can aggravate bouts gout. He states he does not drink alcohol. Will discontinue hydrochlorothiazide and come up with a good blood pressure medication regimen. Will start steroid for his gout. Will recommend to have x-ray of the wrist to rule destructive changes of the bones. Also will recommend to have a tap for confirmation of the crystals of gout. Hypertensive emergency 01/16/2018 Assessment & Plan (01/16/2018 4:43 PM CDT): Despite his young age, he was suffering from a hypertension for several years. It looks like it is not very well controlled. Patient probably needs to have renal artery ultrasound and evaluation but unfortunately this non not available at our hospital, will recommend to do as an outpatient. Demand ischemia of myocardium 01/16/2018 Assessment & Plan (01/16/2018 4:57 PM CDT): The patient has worrisome changes on EKG, inverted T-waves on lateral leads and mild elevation of ST in inferior leads. Patient does not have any chest pain or other cardiac symptoms but this could be related to hypertensive emergency. Will repeat his EKG again in a few hours after the 1st one. Will trend the troponins. First troponin is negative. We will need echocardiogram which will be done tomorrow for further evaluation. Cardiology consultation as needed. Primary hypertension 06/29/2013 Overview (12/11/2016): Benign hypertension Abnormal EKG Hypertensive crisis, unspecified Encounters Date Type Department Care Team Description 05/15/2025 Results Follow-Up [facility] - [address] [id number] Dina Coronado DO XR Chest PA Lateral 2 Views 05/09/2025 9:00 AM CDT - 05/09/2025 11:59 PM CDT Hospital Encounter [facility] [address] [place] [address] Chronic cough Discharge Disposition: Discharge to home or self care 05/09/2025 8:45 AM CDT Office Visit [facility] - [address] [address] Dina Coronado DO Chronic cough (Primary Dx); Seasonal allergic rhinitis due to pollen 03/05/2025 6:42 AM CDT - 03/05/2025 8:06 AM CDT Emergency [facility] [address] [place] [address] Randy Parker MD Nasal congestion (Primary Dx) Discharge Disposition: Discharge to home or self care from Last 3 Months Immunizations Immunization Administration Dates Next Due Influenza, Quadrivalent, Spl it, Preservative Free, Intramuscular 10/13/2023 Medical History Medical History Date Comments Hypertension Family History Medical History Relation Name Comments Other Brother 2 Alive and well; Other Mother Alive and well; Relation Name Status Comments Brother 1 Alive Brother 2 Mother Alive Social History Tobacco Use Types Packs/Day Years Used Date Smoking Tobacco: Former Cigarettes 0 09/06/1986 - 11/04/2022 Smokeless Tobacco: Never Tobacco Cessation:Counseling Given: No Alcohol Use Standard Drinks/Week Comments No 0 (1 standard drink = 0.6 oz pur e alcohol) AUDIT-C Answer Date Recorded Q1: How often do you have a drink containing alcohol? Never 10/11/2023 Q2: How many drinks containi ng alcohol do you have on a typical day when you are drinking? Patient does not drink Q3: How often do you have si x or more drinks on one occasion? Never 10/11/2023 Personal Safety Answer Date Recorded Have you ever been in or are you currently in a harmful physical or emotional relationship or is someone making you feel afraid or unsafe? Denies 03/05/2025 Sex and Gender Information Value Date Recorded Sex Assigned at Not on file Legal Sex Male 1:53 AM CRIMINAL JUSTICE INSTRUCTOR Gender Identity Not on file Sexual Orientation Not on file Obstetrics History Last Filed Vital Signs Vital Sign Reading Time Taken Comments Blood Pressure 147/96 05/09/2025 8:28 AM CDT Pulse 88 05/09/2025 8:28 AM CDT Temperature 36.5 C (97.7 F) 05/09/2025 8:28 AM CDT Respiratory Rate 16 03/05/2025 6:41 AM CDT Oxygen Saturation 97% 05/09/2025 8:28 AM CDT Inhaled Oxygen Concentration - - Weight 103.4 kg (228 lb) 05/09/2025 8:28 AM CDT Height 182.9 cm (6' 0.01) 05/09/2025 8:28 AM CD T Body Mass Index 30.92 05/09/2025 8:28 AM CDT Plan of Treatment Health Maintenance Due Date Last Done Comments Albumin Creatinine Ratio, Urine 1971 Colon Cancer Screening-Colonoscopy 1971 Depression Screening 1971 Hepatitis C Screening 1971 Prostate Cancer Screening-PSA 1971 Dilated Eye Exam 1971 Foot Exam 1971 DTaP/Tdap/Td Vaccine (1 - Tdap) 1982 Hepatitis B Screening 1989 Regular Well Visit/Exam 18-64 1989 Pneumococcal vaccine <65 (1 of 2 - PCV) 1990 Lipid Panel 07/07/2014 07/07/2013 Zoster Vaccine (1 of 2) 2021 Hemoglobin A1C 04/10/2024 10/11/2023 eGFR 10/13/2024 10/13/2023, 02/0 02/2024, 10/11/2023, Additional history exists Covid-19 Vaccine ( - 2024-2 6 season) 2025 09/05/2021, 11/22/2020, 11/02/2020 Influenza Vaccine (#1) 2025 10/13/2023 Procedures Procedure Name Priority Date/Time Associated Diagnosis Comments XR CHEST PA LATERAL 2 VIEWS Schedule Routine, Read Routine (OP Routine) 05/09/2025 9:16 AM CDT Chronic cough EGFR Routine 10/13/2023 2:29 AM CRIMINAL JUSTICE INSTRUCTOR HEMOGLOBIN A1C Routine 10/11/2023 3:35 AM CRIMINAL JUSTICE INSTRUCTOR SERUM LIPID PANEL Routine 07/07/2013 1:0 5 PM CDT from Last 3 Months or Most Recently Relevant to Health Maintenance Results * XR Chest PA Lateral 2 Views (05/09/2025 9:16 AM CDT) Anatomical Region Laterality Modality Body, Chest N/A Computed Radiogr aphy 05/14/2025 4:04 PM CDT Narrative 05/14/2025 4:04 PM CDT EXAM DESCRIPTION: XR CHEST PA LATERAL 2 VIEWS REASON FOR STUDY: Cough Chronic cough. Non smoker Controlled BP TECHNIQUE: 2 radiographic view(s) of the chest. COMPARISON: Chest radiographs 11/18/2017 FINDINGS: The cardiomediastinal silhouette appears normal. There is no airspace consolidation or pleural effusion. IMPRESSION: No acute findings THIS IS AN ELECTRONICALLY VERIFIED FINAL REPORT 05/14/2025 4:04 PM - Electronically signed by Suleman Hernandez M.D. JR: Report ID: [id number] Reading Location: [id number] Procedure Note Suleman Hernandez MD - 05/14/2025 EXAM DESCRIPTION: XR CHEST PA LATERAL 2 VIEWS REASON FOR STUDY: Cough Chronic cough. Non smoker Controlled BP TECHNIQUE: 2 radiographic view(s) of the chest. COMPARISON: Chest radiographs 11/18/2017 FINDINGS: The cardiomediastinal silhouette appears normal. There is no airspace consolidation or pleural effusion. IMPRESSION: No acute findings THIS IS AN ELECTRONICALLY VERIFIED FINAL REPORT 05/14/2025 4:04 PM - Electronically signed by Suleman Hernanedz M.D. JR: Report ID: [id number] Reading Location: [place] [address] [place] Dina Coronado DO IMG XR PROCEDURES Final Resu lt * eGFR (10/13/2023 2:29 AM CRIMINAL JUSTICE INSTRUCTOR) eGFR 103 mL/min/1. 73 m2 [facility] ([place]) Comment: Interpretive Data Reference Interval Normal >/= 90 mL/min/1.73m2 Mildly decreased* 60 - 89 mL/min/1.73m2 Mildly to moderately decreased 45 - 59 mL/min/1.73m2 Moderately to severely decreased 30 - 44 mL/min/1.73m2 Severely decreased 15 - 29 mL/min/1.73m2 Kidney Failure < 15 mL/min/1.73m2 *Relative to young adult level Estimated glomerular filtration rate is determined by the 2020 CKD-EPI equation recommended by the National Kidney Foundation (A Unifying Approach to GFR Estimation: Recommendations of the NKF-ASK Task Force on Reassessing the Inclusion of Race in Diagnosing Kidney Disease, JASN 202). The CKD-EPI equation should not be used for patients with unstable renal function and has not been validated in children and those over 70. Current interpretive data was last reviewed 2021. Blood 10/13/2023 2:29 AM CRIMINAL JUSTICE INSTRUCTOR 10/13/2023 3:57 AM CRIMINAL JUSTICE INSTRUCTOR us Abigail Oswald MD LAB BLOOD ORDERABLES Fi nal Result Performing Organization Address [facility] de Phone Number [facility] ([place]) [address] [facility] [place] [address] * (ABNORMAL) Hemoglobin A1c (10/11/2023 3:35 AM CRIMINAL JUSTICE INSTRUCTOR) Pathologist [facility] Hgb A1C 10.4(H) 4.0 - 5.6 % [facility] ([place]) Estimated Average Glucose 252 mg/dL [facility] ([place]) Comment: The ADA recommends reporting an estimated Average Glucose (eAG) with all Hemoglobin A1c results using the equation derived from a study of 507 normal and diabetic adults. Minority populations were underrepresented and children were not included. (Diabetes Care 31:9130-3900, 2008). The eAG is not equivalent to a fasting glucose. Blood 10/11/2023 3:35 AM CRIMINAL JUSTICE INSTRUCTOR 10/11/2023 3:48 AM CRIMINAL JUSTICE INSTRUCTOR Abigail Oswald MD LAB BLOOD ORDERABLES nal Result Performing Organization Address [facility] de Phone Number [facility] ([place]) [address] [facility] [place] [address] * Serum lipid panel (07/07/2013 1:05 PM CDT) [facility] Cholesterol 202 mg/dl HISTORIC AL RESULTS Comment: DESIRABLE = LESS THAN 200 MG/DL BORDERLINE HIGH = 200-239 MG/DL HIGH= GREATER THAN 239 MG/DL Triglycerides 99 mg/dl HISTOR ICAL RESULTS Comment: Current guidelines recommend that lipid screen be performed on fasting blood samples for heart risk stratification. NORMAL = LESS THAN 150 MG/DL BORDERLINE HIGH = 150-199 MG/DL HIGH = 200-499 MG/DL VERY HIGH = GREATER THAN OR EQUAL TO 500 MG/DL HDL 48 mg/dl HISTORICAL RESULTS Comment: LOW HDL CHOLESTEROL = Less than 40 mg/dL NORMAL HDL CHOLESTEROL = 40-59 mg/dL HIGH HDL CHOLESTEROL = Greater than 59 mg/dL Non-HDL cholesterol, calculated 154 mg/dl HISTORICAL RESULTS Comment: OPTIMAL LESS THAN 130 LOW RISK 130 -159 MODERATE RISK 160 - 189 HIGH RISK GREATER THAN OR EQUAL TO 190 LDL, calculated 134 HIST ORICAL RESULTS Comment: LESS THAN 100 MG/DL OPTIMAL 100 - 129 MG/DL NEAR OPTIMAL / ABOVE OPTIMAL 130 - 159 MG/DL BORDERLINE HIGH 160 - 189 MG/DL HIGH GREATER THAN OR = 190 MG/DL VERY HIGH LDL VALUES ARE NOT VALID WHEN THE TOTAL TRIGLYCERIDE IS GREATER THAN 300 MG/DL. Serum 07/07/2013 1:05 PM CDT Beni Charles MD LAB BLOOD ORDERABLES Final Result HISTORICAL RESULTS from Last 3 Months or Most Recently Relevant to Health Maintenance Insurance HEALTH BENEFIT PLAN [employer] OPEN ACCESS Advance Directives For more information, please contact: [phone] * Full Code (Latest Code Status on File) Date Activated Date Inactivated Comments 10/10/2023 11:39 PM 10/13/2023 3:15 PM * Full Code Date Activated Date Inactivated Comments 01/16/2018 2:57 PM 01/17/2018 6:46 PM Care Teams Structurer Relationship Specialty Start Date End Date Jhony Wilkins MD [address] [place] [address] [place] [id number] PCP - General Family Practice 03/05/25
--- OUTSIDE RECORDS SUMMARY | 2025-05-15 11:50 | XMS_ITS | Clinical Summary ---
Author Organization [facility] [employer] Address [address] [facility] [place] [address] Care Team Providers Care Health Director Name Role Phone Unavailable Primary Care Provider Unavailabl e Source Comments [facility] [employer],non-owned Affiliates and Associated Physician Practices is amultiple site organization consisting of ambulatory clinics and hospital sitesin [place], [place], [place] and [place]. This disclosure is being madepursuant to the Care Everywhere program and may not contain all information available regarding this patient. Last updated 18.[facility] [employer] Allergies No known active allergies Medications * Be aware that medications may not be up to date on this document. Alwaysverify current medications with the patient. No known medications Active Problems No known active problems Family History Medical History Relation Name Comments Negative Family History Other Relation Name Status Comments Other Social History Tobacco Use Types Packs/Day Years Used Date Smoking Tobacco: Former Comments:Quit Sep 2012 Alcohol Use Standard Drinks/Week Comments Not Asked 0 (1 standard drink = 0.6 oz pur e alcohol) Sex and Gender Information Value Date Recorded Sex Assigned at Not on file Legal Sex Male 11:24 AM APPRENTICE EMBALMER Gender Identity Not on file Sexual Orientation Not on file Last Filed Vital Signs Vital Sign Reading Time Taken Comments Blood Pressure - - Pulse - - Temperature - - Respiratory Rate - - Oxygen Saturation - - Inhaled Oxygen Concentration - - Weight 108.9 kg (240 lb) 08/01/2013 9:19 AM APPRENTICE EMBALMER Height 180.3 cm (5' 11) 08/01/2013 9:19 AM APPRENTICE EMBALMER Body Mass Index 33.47 08/01/2013 9:19 AM APPRENTICE EMBALMER Plan of Treatment Health Maintenance Due Date Last Done Comments COLOGUARD (AGES 45-75) - COL ON CA SCREENING 1971 COLON MONITORING 1971 COLONOSCOPY - COLON CA SCREENING 1971 CT COLONOGRAPHY - COLON CA SCREENING 1971 Colorectal Cancer Screening 1971 FIT - COLON CA SCREENING 1971 FLEX SIG - COLON CA SCREENING 1971 LIPID TESTING 1971 HIV SCREENING 1986 HEPATITIS C SCREENING 07/10/1989 DTAP/TDAP/TD VACCINES (1 - Tdap) 1990 HEPATITIS B VACCINE (1 of 3 - 19+ 3-dose series) 1990 PNEUMOCOCCAL VACCINE 50+ (1 of 1 - PCV) 2021 ZOSTER VACCINE (1 of 2) 2021 DEPRESSION SCREENING 09/06/2024 COVID-19 VACCINE (1 - 2023-2 5 season) 2025 INFLUENZA VACCINE (#1) 2025 HIB VACCINE Aged Out No longer eligi ble based on patient's age to complete this topic HPV VACCINE Aged Out No longer eligi ble based on patient's age to complete this topic MENINGOCOCCAL (Group B) VACC INE SHARED DECISION-MAKING Aged Out No longer eligibl e based on patient's age to complete this topic MENINGOCOCCAL GROUPS A/C/Y/W VACCINE Aged Out No longer eligible b ased on patient's age to complete this topic Insurance MELISSA CIGNA
--- OUTSIDE RECORDS SUMMARY | 2025-05-15 11:50 | XMS_ITS | Encounter Summary ---
Author Organization [facility] Address [address] [place] [address] Care Team Providers Care Senior Water Resources Engineer Name Role Phone Jhony Wilkins MD Primary Care Provider Encounter Details Date Type Department Care Team ([facility] st Contact Info) Description 05/15/2025 Results Follow-Up [facility] - [facility] [address] [facility] [address] [place] [id number] Dina Coronado, DO [address] [facility] [address] [place] [address] XR Chest PA Lateral 2 Views Social History Tobacco Use Types Packs/Day Years Used Date Smoking Tobacco: Former Cigarettes 0 09/06/1986 - 11/04/2022 Smokeless Tobacco: Never Alcohol Use Standard Drinks/Week Comments No 0 [...] on file Legal Sex Male 1:53 AM CREDIT AND COLLECTION MANAGER Gender Identity Not on file Sexual Orientation Not on file documented as of this encounter Miscellaneous Notes * Telephone Encounter - Saskia Wilhelm MA - 05/15/2025 8:47 AM CDT Pt called back, pt informed. * Telephone Encounter - Saskia Wilhelm MA - 05/15/2025 8:44 AM CDT [id number] ----- Message from Dina Coronado DO sent at 05/15/2025 8:39 AM CDT ----- Please call the patient regarding chest X-ray negative ----- Message ----- From: Interface, Radiology Results In Sent: 05/14/2025 4:07 PM CDT To: Dina Coronado DO documented in this encounter Plan of Treatment Not on file documented as of this encounter Visit Diagnoses Not on filedocumented in this encounter Care Teams Senior Water Resources Engineer Relationship Specialty Start Date End Date Jhony Wilkins MD [address] [place] [address] [place] [id number] PCP - General Family Practice 03/05/25 documented as of this encounter
[2025-05-15 13:07] LABS: Hematocrit 44.2 % (42.0-52.0); Hemoglobin 14.7 g/dL (14.0-18.0); Immature Granulocyte Percent A 0.2 % (0-0.5); Lymphocytes Absolute Auto 3.04 K/mm3 (0.9-3.2); Mean Corpuscular HGB Conc 33.3 g/dl (32-36); Mean Corpuscular Hemoglobin 31.9 pg (26-34); Mean Corpuscular Volume 95.9 fl (80-100); Nucleated Red Blood Cells Absolute Auto 0.000 K/mm3 (0.0-0.012); Nucleated Red Blood Cells Perc 0.0 % (0.0-0.2); Platelet Count Result 280 k/mm3 (150-375); Red Blood Count 4.61 M/mm3 (4.6-6.20); White Blood Count 8.9 K/mm3 (4.5-10.0)
[2025-05-15 13:23] LABS: Alanine Aminotransferase 47 U/L (6-50); Albumin Level 4.5 g/dL (3.5-5.1); Alkaline Phosphatase 67 U/L (38-126); Anion Gap 11 mmol/L (4-12); Aspartate Amino Transferase 58 U/L (17-59); Bilirubin,Total 0.8 mg/dL (0.2-1.3); Blood Urea Nitrogen 13 mg/dL (9-20); Calcium 9.8 mg/dL (8.4-10.2); Carbon Dioxide 23 mmol/L (22-30); Chloride 107 mmol/L (98-107); Cholesterol 122 mg/dL (0-200); Estimated Glomerular Filt Rate > 60; Glucose 109 mg/dL (65-110); HDL Direct 41 mg/dL; Magnesium 2.2 mg/dL (1.6-2.3); Potassium 4.1 mmol/L (3.4-5.0); Sodium 141 mmol/L (137-145); Total Protein 8.3 g/dL (6.3-8.2); Triglycerides 74 mg/dL (<150)
[2025-05-15 13:43] LABS: MALB Creatinine Ratio 50.3 mg/g (0-30)
[2025-05-15 14:03] LABS: Thyroid Stimulating Hormone Reflex 0.471 uIU/mL (0.465-4.68)
[2025-05-15 14:34] LABS: Vitamin B12 > 1000.0 pg/mL (239-931)
== END 2025-05-15 10:20 | disposition home or self-care (01) ==
LOC: ANHGOSHLAB 10:19
PROVIDERS: PCP Nurse Practitioner Family; Visit Provider Nurse Practitioner Family
DX: R79.89 Other specified abnormal findings of blood chemistry (principal); I10 Essential (primary) hypertension; E78.5 Hyperlipidemia, unspecified; E11.9 Type 2 diabetes mellitus without complications
CPT/HCPCS: 36415; 80053; 80061; 82043; 82306; 82607; 83735; 84443; 85025